=== PATIENT | female | born 1975 | race Caucasian/White ===

== ENCOUNTER → 2016-04-12 | Outpatient (CLI) | payer BC ==
[~2016-04-12] VITALS: Ht 161.3 cm; Wt 112.7 kg
[2016-04-12 13:44] VITALS: BP 139/64; PULSE 92
[2016-04-12 15:52] VITALS: BP 139/64; PULSE 92
[2016-05-02 08:44] VITALS: BP 119/54; PULSE 78
== END ==
LOC: LIGHT 03-22 13:53
DX: E16.1 Other hypoglycemia (principal); E66.01 Morbid (severe) obesity due to excess calories; Z68.41 Body mass index [BMI] 40.0-44.9, adult

== ENCOUNTER → 2016-05-03 | Outpatient (CLI) | payer BC | LOC: MC.RAD 08:20 | DX: Z12.31 Encounter for screening mammogram for malignant neoplasm of breast (principal); N63 Unspecified lump in breast ==

== ENCOUNTER → 2016-05-06 | Outpatient (CLI) | payer BC | LOC: MC.RAD 09:24 | DX: N63 Unspecified lump in breast (principal) ==

== ENCOUNTER → 2016-05-09 | Outpatient (CLI) | payer BC | LOC: MC.RAD 12:16 | DX: D24.2 Benign neoplasm of left breast (principal) ==

== ENCOUNTER → 2016-11-07 | Outpatient (CLI) | payer BC | LOC: MC.RAD 08:30 | DX: N63 Unspecified lump in breast (principal) ==

== ENCOUNTER → 2017-08-21 | Outpatient (CLI) | payer BC | LOC: MC.RAD 11:20 | DX: Z12.31 Encounter for screening mammogram for malignant neoplasm of breast (principal); Z98.890 Other specified postprocedural states ==